=== PATIENT | male | born 1955 | race Caucasian/White ===

== ENCOUNTER 2019-08-18 11:04 | Inpatient (IN) ==
[2019-08-18] MEDS ORDERED: CeFAZolin Syr 2,000MG/20 ML 2,000 MG/20 ML SYRINGE IVPB ONE (11:44)
[2019-08-18] MEDS ORDERED: Albuterol 2.5 MG/3 ML NEBULIZER IH PRN (11:44)
[2019-08-18] MEDS ORDERED: Ringers Solution, Lactated 1,000 ML IVC SCH ×3 (11:45→15:26)
[2019-08-18] MEDS ORDERED: Ondansetron 4 MG/2 ML VIAL IVP ONE (12:09)
[2019-08-18] MEDS ORDERED: *HR* OxyCODONE Immed Rel 5 MG TABLET PO PRN ×2 (12:09→15:26)
[2019-08-18] MEDS ORDERED: *HR* Midazolam HCl 2 MG/2 ML VIAL ONE (13:09)
[2019-08-18] MEDS ORDERED: Ropivacaine/PF 0.5% 30 ML VIAL ONE (13:09)
[2019-08-18] MEDS ORDERED: *HR* FentaNYL (PF) 100 MCG/2 ML VIAL ONE (13:09)
[2019-08-18] MEDS ORDERED: ROPIVACAINE/PF/NS 0.25% 1 EACH SYRINGE INTRAART ONE (13:10)
[2019-08-18] MEDS ORDERED: Dexamethasone 4 MG/ML VIAL ONE ×2 (13:15→13:47)
[2019-08-18] MEDS ORDERED: *HR* Propofol 200 MG/20 ML VIAL IVP ONE ×2 (13:15→13:39)
[2019-08-18] MEDS ORDERED: Ondansetron 4 MG/2 ML VIAL ONE ×2 (13:15→13:47)
[2019-08-18] MEDS ORDERED: Lidocaine -MPF 2% 2 ML VIAL ONE (13:15)
[2019-08-18] MEDS ORDERED: Lidocaine HCL 4 ML Topical Solution (Laryng-O-Jet Kit Sterile Pak) TP ONE (13:15)
[2019-08-18] MEDS ORDERED: *HR* Succinylcholine 200 MG/10 ML VIAL IVP ONE (13:15)
[2019-08-18] MEDS ORDERED: Ethanol\\Acetic Acid\\Na Ace\\Ben 1,000 ML IRRIG.SOLN IR ONE (13:27)
[2019-08-18] MEDS ORDERED: Ketorolac 30 MG/ML VIAL ONE (14:00)
[2019-08-18 15:11] LABS: Hematocrit 45.6 % (37.5-50.1)
[2019-08-18] MEDS ORDERED: Ondansetron 4 MG/2 ML VIAL IVP PRN (15:26)
[2019-08-18] MEDS ORDERED: Naloxone 0.4 MG/ML INJ IVP PRN (15:26)
[2019-08-18] MEDS ORDERED: Sennosides 8.6 MG TABLET PO PRN (15:26)
[2019-08-18] MEDS ORDERED: MOM Conc 10 ML UD.LIQ PO PRN (15:26)
[2019-08-18] MEDS ORDERED: ALPRAZolam 0.25 MG TABLET PO PRN (15:26)
[2019-08-18] MEDS ORDERED: *HR* OxyCODONE/APAP 5/325 TABLET PO PRN (15:26)
[2019-08-18] MEDS ORDERED: Fluticasone Propionate Nasal 50 MCG/SPRAY BOTTLE NS PRN (15:26)
[2019-08-18] MEDS ORDERED: *HR* Enoxaparin 30 MG/0.3 ML SYRINGE SQ SCH ×2 (18:00)
[2019-08-18 18:34] VITALS: BP 151/76
[2019-08-18] MEDS ORDERED: ceFAZolin 2,000 MG in 0.9 % Sodium Chloride 100 ML IVPB SCH (21:00)
[2019-08-19] MEDS ORDERED: Ibuprofen 200 MG TABLET PO SCH (09:00)
[2019-08-19] MEDS ORDERED: Aspirin Enteric Coated 81 MG Tablet PO SCH (09:00)
[2019-08-19] MEDS ORDERED: DilTIAZem CD (24hr) 180 MG CAP.ER.24H PO SCH (09:00)
== END 2019-08-18 19:00 | disposition home or self-care (01) | DRG 483 ==
LOC: SAMDAY 11:04 → 3NENU 15:25
PROVIDERS: ADMIT Orthopaedic Surgery; ATTEND Orthopaedic Surgery

== ENCOUNTER 2020-02-26 12:36 | Inpatient (IN) ==
[2020-02-26] MEDS ORDERED: Famotidine 20 MG/2 ML VIAL IVP ONE (13:10)
[2020-02-26] MEDS ORDERED: Ringers Solution, Lactated 1,000 ML IVC SCH ×2 (13:10→17:13)
[2020-02-26] MEDS ORDERED: CeFAZolin Syr 2,000MG/20 ML 2,000 MG/20 ML SYRINGE IVPB ONE (13:12)
[2020-02-26] MEDS ORDERED: Ondansetron 4 MG/2 ML VIAL ONE (13:19)
[2020-02-26] MEDS ORDERED: Dexamethasone 4 MG/ML VIAL ONE (13:19)
[2020-02-26] MEDS ORDERED: *HR* Succinylcholine 200 MG/10 ML VIAL IVP ONE (13:19)
[2020-02-26] MEDS ORDERED: Lidocaine -MPF 2% 2 ML VIAL ONE (13:19)
[2020-02-26] MEDS ORDERED: Lidocaine HCL 4 ML Topical Solution (Laryng-O-Jet Kit Sterile Pak) TP ONE (13:19)
[2020-02-26] MEDS ORDERED: *HR* Propofol 200 MG/20 ML VIAL IVP ONE (13:20)
[2020-02-26] MEDS ORDERED: Acetaminophen IV 1,000 MG/100 ML INFUS..BTL IVPB ONE (13:39)
[2020-02-26] MEDS ORDERED: *HR* Midazolam HCl 2 MG/2 ML VIAL ONE (13:41)
[2020-02-26] MEDS ORDERED: *HR* FentaNYL (PF) 100 MCG/2 ML VIAL ONE (13:41)
[2020-02-26] MEDS ORDERED: Ropivacaine/PF 0.5% 30 ML VIAL ONE (13:42)
[2020-02-26] MEDS ORDERED: ROPIVACAINE/PF/NS 0.25% 1 EACH SYRINGE INTRAART ONE (13:50)
[2020-02-26] MEDS ORDERED: Acetaminophen IV 1,000 MG/100 ML INFUS..BTL ONE (13:52)
[2020-02-26] MEDS ORDERED: Ethanol\\Acetic Acid\\Na Ace\\Ben 1,000 ML IRRIG.SOLN IR ONE (13:54)
[2020-02-26] MEDS ORDERED: Vancomycin 1,000 MG VIAL ONE (13:54)
[2020-02-26] MEDS ORDERED: *HR* PHENYLEPHRINE 1,000 MCG/10 ML SYRINGE IVP ONE (14:53)
[2020-02-26 17:03] LABS: Hematocrit 46.3 % (37.5-50.1); Hemoglobin 15.6 g/dL (12.9-16.9)
[2020-02-26] MEDS ORDERED: Ondansetron 4 MG/2 ML VIAL IVP PRN (17:13)
[2020-02-26] MEDS ORDERED: Dextrose Gel 15 GM/37.5 ML TUBE PO PRN ×2 (17:13)
[2020-02-26] MEDS ORDERED: D5% in Water 1,000 ML IVC PRN (17:13)
[2020-02-26] MEDS ORDERED: Loratadine 10 MG TABLET PO PRN (17:13)
[2020-02-26] MEDS ORDERED: Naloxone 0.4 MG/ML INJ IVP PRN (17:13)
[2020-02-26] MEDS ORDERED: Fluticasone Propionate Nasal 50 MCG/SPRAY BOTTLE NS PRN (17:13)
[2020-02-26] MEDS ORDERED: Sennosides 8.6 MG TABLET PO PRN (17:13)
[2020-02-26] MEDS ORDERED: Insulin LISPRO 300 UNITS/3 ML VIAL SQ SCH ×2 (17:13→21:00)
[2020-02-26] MEDS ORDERED: ALPRAZolam 0.25 MG TABLET PO PRN (17:13)
[2020-02-26] MEDS ORDERED: *HR* OxyCODONE Immed Rel 5 MG TABLET PO PRN (17:13)
[2020-02-26] MEDS ORDERED: *HR* OxyCODONE/APAP 5/325 TABLET PO PRN (17:13)
[2020-02-26] MEDS ORDERED: *HR* Dextrose 50 % in Water (Vial) 50 ML VIAL IVP PRN (17:13)
[2020-02-26] MEDS ORDERED: MOM Conc 10 ML UD.LIQ PO PRN (17:13)
[2020-02-26] MEDS ORDERED: *HR* Enoxaparin 30 MG/0.3 ML SYRINGE SQ SCH ×2 (18:00)
[2020-02-26 18:50] VITALS: BP 130/76
[2020-02-27] MEDS ORDERED: CeFAZolin 2 GM/120 ML BAG IVPB SCH
[2020-02-27] MEDS ORDERED: DilTIAZem CD (24hr) 180 MG CAP.ER.24H PO SCH (09:00)
[2020-02-27] MEDS ORDERED: Aspirin Enteric Coated 81 MG Tablet PO SCH (09:00)
== END 2020-02-26 20:15 | disposition home or self-care (01) | DRG 483 ==
LOC: SAMDAY 12:36 → 3NENU 17:04
PROVIDERS: ADMIT Orthopaedic Surgery; ATTEND Orthopaedic Surgery